=== PATIENT | female | born 1955 | race Hispanic/Latino ===

== ENCOUNTER 2019-02-25 10:13 | Outpatient (CLI) | payer MEDICARE ==
--- NOTE | 2019-02-25 11:24 | RAD ---
Chest 2 views HISTORY: Chest pain. Preop. FINDINGS: Cardiac silhouette and pulmonary vasculature are unremarkable. Mediastinum is midline. No c onfluent airspace consolidation, pneumothorax, or pleural fluid. IMPRESSION: No active cardiopulmonary abnormalities are demonstrated.
[2019-02-25 12:15] LABS: Band 2 % (5-11); Hemoglobin 13.8 g/dL (12.0-16.0); Lymphocytes 22 % (21-51); MDiff Complete? YES; Mean Corpuscular HGB CONC 34.1 g/dL (32.0-36.0); Mean Corpuscular Hemoglobin 31.1 pg (27.0-31.0); Mean Corpuscular Volume 91.4 fL (78.0-98.0); Mean Platelet Volume 8.1 fL (7.4-10.4); Monocytes 7 % (0-10); Neutrophil 69 % (42-75); Platelet Count 209 thou/uL (130-400); RBC Distribution Width 13.2 % (11.5-14.5); RBC Morphology Normal; Red Blood Cell (RBC) Count 4.43 mill/uL (4.20-5.40); White Blood Cell (WBC) Count 6.4 thou/uL (4.8-10.8)
[2019-02-25 12:21] LABS: ALT (SGPT) 19 U/L (8-55); AST (SGOT) 16 U/L (5-34); Albumin 4.3 g/dL (3.4-4.8); Alkaline Phosphatase 71 U/L (40-150); Anion Gap 13 mmol/L (10-20); BUN (Urea Nitrogen) 23 mg/dL (9.8-20.1); Bilirubin, Total 0.5 mg/dL (0.2-1.2); Calc. Creatinine Clearance 0 mL/min (70-130); Calcium 9.8 mg/dL (7.8-10.44); Carbon Dioxide 25 mmol/L (23-31); Chloride 105 mmol/L (98-107); Estimated GFR-MDRD 54; Globulin 3.1 g/dL (2.4-3.5); Glucose 99 mg/dL (80-115); Potassium 3.9 mmol/L (3.5-5.1); Protein, Total 7.4 g/dL (6.0-8.3); Sodium 139 mmol/L (136-145)
[2019-02-25 14:06] LABS: Cardiac Risk 3.2 (Less than 4.5)
== END 2019-02-25 10:14 | disposition home or self-care (01) ==
LOC: LABBT 10:13
PROVIDERS: ATTEND Internal Medicine Cardiovascular Disease
DX: Z01.818 Encounter for other preprocedural examination (principal); R94.39 Abnormal result of other cardiovascular function study
CPT/HCPCS: 71046; 80053; 80061; 85025; 93005; 93010

== ENCOUNTER 2019-02-27 05:51 | Inpatient (IN) | payer MEDICARE ==
[2019-02-27] MEDS ORDERED: Heparin 10,000 UNITS/1 ML VIAL ONE (06:28)
[2019-02-27] MEDS ORDERED: Fentanyl 100 MCG/2 ML VIAL ONE (07:03)
[2019-02-27] MEDS ORDERED: Midazolam HCl 2 mg/2 ml Vial ONE (07:03)
[2019-02-27] MEDS ORDERED: Nitroglycerin 0.4 MG TAB (25 Tab Bottle) SL PRN (07:33)
[2019-02-27] MEDS ORDERED: Sodium Chloride 0.9% 200 ML IV PRN (07:33)
[2019-02-27] MEDS ORDERED: Heparin 25,000 units/D5W 500 ML ONE (07:40)
[2019-02-27] MEDS ORDERED: Fentanyl 100 MCG/2 ML VIAL SLOW IVP PRN (07:41)
[2019-02-27] MEDS ORDERED: Heparin 10,000 UNITS/ 10 ML VIAL SLOW IVP SCH (07:45)
[2019-02-27] MEDS ORDERED: Sodium Chloride 0.9% 1,000 ML IV SCH (07:45)
[2019-02-27] MEDS ORDERED: Communication Order-Pharmacy FS SCH (08:13)
[2019-02-27] MEDS ORDERED: Iopamidol 370 76% 100 ML VIAL ONE (10:04)
[2019-02-27] MEDS ORDERED: Iopamidol 370 76% 50 ML VIAL FS ONE (10:04)
[2019-02-27 10:05] LABS: INR-International Normal Ratio 1.1; Prothrombin Time 14.2 SEC (12.0-14.7)
[2019-02-27 10:06] LABS: PTT 87.4 SEC (22.9-36.1)
[2019-02-27] MEDS: Ubidecarenone 50 MG CAP PO SCH (11:00)
[2019-02-27] MEDS: Losartan 25 MG TAB PO SCH (11:02)
[2019-02-27] MEDS: Metoprolol Tartrate 25 MG TAB PO SCH ×2 (11:02→20:01)
--- NOTE | 2019-02-27 13:10 | CON ---
DATE OF CONSULTATION: HISTORY OF PRESENT ILLNESS: This is a 63-year-old female, who underwent cardiac catheterization today by Dr. Vences. She states at least for the past couple of months, she has noticed dyspnea when she walks out to her mailbox. This maybe associated with chest pressure, perhaps some left shoulder pain or back pain, but it is very difficult to get a coherent history from this pleasant lady. She had an abnormal stress test, which prompted the catheterization. She was placed on aspirin at the time of initial evaluation by Dr. Vences. PAST MEDICAL HISTORY: Includes hypertension and dyslipidemia. She denies any history of diabetes mellitus, but does have a strong family history of heart disease including a brother who during heart surgery in his 30s. PAST SURGICAL HISTORY: Includes colonoscopy and polypectomy. SOCIAL HISTORY: She is a nonsmoker. She is . 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 ALLERGIES: SHE REPORTS ALLERGIES TO PENICILLIN, MORPHINE, AND IODINE. SHE ALSO REPORTS AN ASPIRIN ALLERGY, BUT THIS IS ACTUALLY JUST SENSITIVE STOMACH SYMPTOMS. PHYSICAL EXAMINATION: VITAL SIGNS: She is recorded as 5 feet 3 inches, 197 pounds for a BMI of 35. NECK: No carotid bruits. LUNGS: Clear to auscultation. CARDIAC: Regular rate and rhythm with no murmurs. ABDOMEN: Obese with panniculus hanging over both of her groin areas. She has a sheath in her right groin at this time. She has palpable popliteal pulses bilaterally and she has a palpable left dorsalis pedis pulse. I do not appreciate any pedal pulses in her right foot. She has no peripheral edema, and she does have some superficial veins visible in her leg, but no real varicosities. IMAGING STUDIES: Cardiac catheterization shows multivessel coronary artery disease with a 70% left main prior to 2 large obtuse marginals. Her LAD is occluded, it fills from collaterals and the distal vessel was of questionable quality. Right coronary artery has an acute marginal with a 90% stenosis and a significant stenosis in a mid PDA. ASSESSMENT AND PLAN: The patient would benefit from coronary artery bypass grafting, and I have gone over the procedure, risks, complications, benefits, options, and expectations with the patient and , and all questions have been answered and we will plan on surgical intervention tomorrow. Job ID: [id number]
[2019-02-27 16:18] LABS: Prothrombin Time 13.6 SEC (12.0-14.7)
[2019-02-27 16:19] LABS: PTT 73.7 SEC (22.9-36.1)
[2019-02-27] MEDS: Nitroglycerin 2% Ointment 1 INCH/1 GM Packet TOP SCH ×2 (18:06→22:07)
[2019-02-27] MEDS: Atorvastatin Calcium 40 MG TAB PO SCH (20:01)
[2019-02-28 02:48] LABS: Troponin I Less than 0.010 ng/mL (< 0.028)
[2019-02-28] MEDS: Metoprolol Tartrate 25 MG TAB PO SCH (05:29)
[2019-02-28] MEDS: Nitroglycerin 2% Ointment 1 INCH/1 GM Packet TOP SCH (05:30)
[2019-02-28] MEDS ORDERED: Fentanyl 250 MCG/5 ML VIAL ONE (06:36)
[2019-02-28] MEDS ORDERED: Albumin 5% 500 ML ONE (06:36)
[2019-02-28] MEDS ORDERED: Midazolam HCl 2 mg/2 ml Vial ONE (06:36)
[2019-02-28] MEDS ORDERED: Nitroglycerin 50 MG/250 ML BOT 250 ML ONE (06:38)
[2019-02-28] MEDS ORDERED: Norepinephrine 4 MG/4 ML VIAL ONE (06:38)
[2019-02-28] MEDS ORDERED: Heparin 10,000 UNITS/1 ML VIAL 30,000 UNITS in Sodium Chloride 0.9% 1,000 ML FS SCH (06:45)
[2019-02-28] MEDS ORDERED: Levofloxacin 500 mg/D5W 100 ml Premix Bag ONE (08:14)
[2019-02-28] MEDS ORDERED: Heparin 30,000 units/30 ml VIAL ONE (09:24)
[2019-02-28] MEDS ORDERED: Sodium Bicarb 50 MEQ/50 ML VIAL ONE (09:24)
[2019-02-28] MEDS ORDERED: Calcium Chloride 1 GM/10 ML Abboject SYRINGE ONE (09:24)
[2019-02-28] MEDS ORDERED: Protamine Sulfate 250 MG/25 ML VIAL ONE (09:24)
[2019-02-28] MEDS ORDERED: Mannitol 12.5 GM/50 ML ONE (09:24)
[2019-02-28] MEDS ORDERED: Vecuronium 10 MG VIAL ONE (09:24)
[2019-02-28] MEDS ORDERED: Aminocaproic Acid 5 GM/20 ML VIAL ONE (09:24)
[2019-02-28] MEDS ORDERED: Thrombin 5000 UNITS/5 ML VIAL ONE (09:24)
[2019-02-28] MEDS ORDERED: Succinylcholine Chloride 20 MG/ML 10 ml SYRINGE FS ONE (09:24)
[2019-02-28] MEDS ORDERED: Lidocaine 2% PF 100 mg/5 ml Syringe ONE (09:24)
[2019-02-28] MEDS ORDERED: Cardioplegic Soln 1,000 ML BAG ONE (09:24)
[2019-02-28] MEDS ORDERED: Rocuronium Bromide 10 MG/ML (10ML VIAL) ONE (09:24)
[2019-02-28] MEDS ORDERED: Heparin 5,000 UNITS/ML VIAL ONE (09:24)
[2019-02-28] MEDS ORDERED: Papaverine 60 MG/2 ML VIAL ONE (09:24)
[2019-02-28] MEDS ORDERED: Magnesium 5 GM/10 ML VIAL ONE (09:24)
[2019-02-28] MEDS ORDERED: Potassium Chloride 60 MEQ/30 ML VIAL ONE (09:24)
[2019-02-28] MEDS ORDERED: PROPOFOL 200 MG/20 ML VIAL ONE (09:24)
[2019-02-28] MEDS: Ubidecarenone 50 MG CAP PO SCH (11:38)
[2019-02-28] MEDS: Losartan 25 MG TAB PO SCH (11:38)
[2019-02-28] MEDS ORDERED: hydrALAZINE 20 MG/ML VIAL SLOW IVP PRN (11:58)
[2019-02-28] MEDS ORDERED: DOPamine 400 MG/D5W 250 ML 250 ML IVPB PRN (11:58)
[2019-02-28] MEDS ORDERED: Post-Op Insulin Drip Protocol IVPB ONE (11:58)
[2019-02-28] MEDS ORDERED: Fentanyl 100 MCG/2 ML VIAL SLOW IVP PRN ×2 (11:58)
[2019-02-28] MEDS ORDERED: Bisacodyl 10 MG SUPP PR PRN (11:58)
[2019-02-28] MEDS ORDERED: Guaifenesin DM 100-10/5 ML UDCUP PO PRN (11:58)
[2019-02-28] MEDS ORDERED: Morphine 2 MG/ML SYRINGE SLOW IVP PRN (11:58)
[2019-02-28] MEDS ORDERED: traMADol HCl 50 MG TAB PO PRN (11:58)
[2019-02-28] MEDS ORDERED: Nitroglycerin 50 MG/250 ML BOT 250 ML IVPB PRN (11:58)
[2019-02-28] MEDS ORDERED: Bisacodyl 5 MG TAB PO PRN (11:58)
[2019-02-28] MEDS ORDERED: Promethazine HCl 25 MG/ML VIAL IM PRN (11:58)
[2019-02-28] MEDS ORDERED: Hetastarch 6% 500 ML 500 ML IVPB PRN (11:58)
[2019-02-28] MEDS ORDERED: Mag-Al 1200 mg/1200 mg/30 ML UDCUP PO PRN (11:58)
[2019-02-28] MEDS ORDERED: HUMULIN R 100 UNITS in Sodium Chloride 0.9% 100 ML IVPB SCH (12:25)
[2019-02-28] MEDS ORDERED: Dextrose 5% in Water 1,000 ML IV PRN (12:25)
[2019-02-28] MEDS ORDERED: Dextrose 50% Abboject 50 ML SYRINGE SLOW IVP PRN (12:25)
[2019-02-28] MEDS ORDERED: Insulin Regular 300 UNITS/3 ML VIAL SC PRN (12:25)
[2019-02-28] MEDS: Ketorolac Tromethamine 30 MG/ML VIAL IVP SCH ×3 (12:51→23:13)
[2019-02-28] MEDS: Ondansetron PF 4 MG/2 ML Vial IVP PRN (12:51)
[2019-02-28 12:52] LABS: Hemoglobin 10.4 g/dL (12.0-16.0); Mean Corpuscular HGB CONC 33.5 g/dL (32.0-36.0); Mean Corpuscular Hemoglobin 31.1 pg (27.0-31.0); Mean Corpuscular Volume 92.8 fL (78.0-98.0); Mean Platelet Volume 7.9 fL (7.4-10.4); Platelet Count 160 thou/uL (130-400); RBC Distribution Width 13.6 % (11.5-14.5); Red Blood Cell (RBC) Count 3.36 mill/uL (4.20-5.40); White Blood Cell (WBC) Count 23.7 thou/uL (4.8-10.8)
--- NOTE | 2019-02-28 12:54 | RAD ---
XR Chest 1 View Portable History: Open heart surgery Comparison: Radiograph 02/25/2019 Findings: Patient is intubated endotracheal tube tip at the level of the clavicles. Central venous ca theter tip sits at the right atrium. Mediastinal drain is in place. No pneumothorax. Mild atelectasis. Impression: Satisfactory postoperative appearance.
[2019-02-28] MEDS: Sodium Chloride 0.9% 1,000 ML IV SCH (12:55)
[2019-02-28 12:57] LABS: INR-International Normal Ratio 1.4; PTT 27.3 SEC (22.9-36.1); Prothrombin Time 16.7 SEC (12.0-14.7)
[2019-02-28] MEDS: Clindamycin/D5W 900 MG in Premix Bag 1 BAG IVPB SCH ×3 (13:01→23:13)
[2019-02-28 13:05] LABS: Band 17 % (5-11); Eosinophils 1 % (0-10); Lymphocytes 19 % (21-51); MDiff Complete? YES; Monocytes 5 % (0-10); Neutrophil 58 % (42-75); Platelet Morphology Comment Appears Adequate; Polychromasia SLIGHT = 2-3 cells (100X) (0-2/hpf)
[2019-02-28 13:06] LABS: Actual Bicarbonate (HCO3a) 22.8 mEq/L (22-28); Base Excess (BEa) -3.2 mEq/L (-2.0 to +3.0); CO2 Tension 44.6 mmHg (35.0-45.0); Calcium, Ionized 1.03 mmol/L (1.12-1.30); Hemoglobin (Hb) 11.6 g/dL (12.0-16.0); O2 Tension (PaO2) 116.1 mmHg (> 80.0); Potassium - ABG Lab 3.54 mmol/L (3.70-5.30); pH, Arterial 7.33 (7.35-7.45)
[2019-02-28 13:07] LABS: Puncture Site ALINE
[2019-02-28 13:20] LABS: Anion Gap 12 mmol/L (10-20); BUN (Urea Nitrogen) 12 mg/dL (9.8-20.1); Calc. Creatinine Clearance 106 mL/min (70-130); Calcium 7.6 mg/dL (7.8-10.44); Carbon Dioxide 22 mmol/L (23-31); Chloride 111 mmol/L (98-107); Estimated GFR-MDRD 78; Glucose 164 mg/dL (80-115); Potassium 3.7 mmol/L (3.5-5.1); Sodium 141 mmol/L (136-145)
[2019-02-28 18:25] LABS: Hemoglobin 10.4 g/dL (12.0-16.0)
[2019-02-28 18:38] LABS: Potassium 3.9 mmol/L (3.5-5.1)
[2019-02-28] MEDS: Potassium Chloride 20 MEQ/100 ML PREMIX BAG IVPB PRN (19:10)
[2019-02-28 19:14] LABS: Actual Bicarbonate (HCO3a) 17.9 mEq/L (22-28); Base Excess (BEa) -6.9 mEq/L (-2.0 to +3.0); CO2 Tension 33.4 mmHg (35.0-45.0); Calcium, Ionized 1.04 mmol/L (1.12-1.30); Carboxyhemoglobin (COHb) 0.7 gm% (0.0-3.0); O2 Tension (PaO2) 94.9 mmHg (> 80.0); Potassium - ABG Lab 3.92 mmol/L (3.70-5.30); Puncture Site ALINE; pH, Arterial 7.35 (7.35-7.45)
[2019-02-28] MEDS: Famotidine/PF 20 mg/2ml Vial SLOW IVP SCH (21:24)
[2019-02-28] MEDS: Atorvastatin Calcium 40 MG TAB PO SCH (21:24)
[2019-03-01] MEDS: Sodium Chloride 0.9% 1,000 ML IV SCH (02:53)
[2019-03-01 04:34] LABS: #Basophils 0.1 thou/uL (0.0-0.2); #Lymphocytes 1.2 thou/uL (1.20-3.40); #Monocytes 0.8 thou/uL (0.11-0.59); #Neutrophils 9.4 thou/uL (1.40-6.50); %Basophils 1.1 % (0.0-1.0); %Eosinophils 0.1 % (0.0-10.0); %Lymphocytes 10.7 % (21.0-51.0); %Monocytes 7.2 % (0.0-10.0); %Neutrophils 80.9 % (42.0-75.0); Mean Corpuscular HGB CONC 33.1 g/dL (32.0-36.0); Mean Corpuscular Hemoglobin 30.8 pg (27.0-31.0); Mean Corpuscular Volume 93.1 fL (78.0-98.0); Mean Platelet Volume 7.7 fL (7.4-10.4); Platelet Count 133 thou/uL (130-400); RBC Distribution Width 13.7 % (11.5-14.5); Red Blood Cell (RBC) Count 3.25 mill/uL (4.20-5.40); White Blood Cell (WBC) Count 11.6 thou/uL (4.8-10.8)
[2019-03-01 04:36] LABS: Hemoglobin A1c 5.9 % (4.0-6.0)
[2019-03-01 04:49] LABS: Anion Gap 11 mmol/L (10-20); BUN (Urea Nitrogen) 14 mg/dL (9.8-20.1); Calc. Creatinine Clearance 105 mL/min (70-130); Calcium 7.6 mg/dL (7.8-10.44); Carbon Dioxide 21 mmol/L (23-31); Chloride 112 mmol/L (98-107); Estimated GFR-MDRD 76; Glucose 117 mg/dL (80-115); Sodium 140 mmol/L (136-145)
[2019-03-01] MEDS: Clindamycin/D5W 900 MG in Premix Bag 1 BAG IVPB SCH (05:15)
[2019-03-01] MEDS: Ketorolac Tromethamine 30 MG/ML VIAL IVP SCH ×3 (05:15→17:43)
[2019-03-01] MEDS: Potassium Chloride 20 MEQ/100 ML PREMIX BAG IVPB PRN (05:58)
--- NOTE | 2019-03-01 07:43 | RAD ---
Frontal radiograph chest: 03/01/2019 COMPARISON: 02/28/2019 HISTORY: Evaluate chest following open heart surgery FINDINGS: Midline sternotomy wires are noted. There is atherosclerotic calcification of the aortic ar ch. Right vascular catheter in place, distal tip overlying the right atrium. Right lung appears clear. Hazy increased density in the left base suggest mild atelectatic change. Drainage catheter ove rlies the left base. Endotracheal tube has been removed since the prior exam. IMPRESSION: No interval change aside from interval extubation
[2019-03-01] MEDS: Famotidine/PF 20 mg/2ml Vial SLOW IVP SCH (07:55)
[2019-03-01] MEDS: Ondansetron PF 4 MG/2 ML Vial IVP PRN (08:39)
--- NOTE | 2019-03-01 08:50 | OP ---
DATE OF PROCEDURE: 02/28/2019 PREOPERATIVE DIAGNOSIS: Coronary artery disease. POSTOPERATIVE DIAGNOSIS: Coronary artery disease. PROCEDURE PERFORMED: Coronary artery bypass graft x5; left internal mammary artery good flow to a 1.5 mm left anterior descending artery; saphenous vein good quality as a sequential graft to the acute marginal and posterior descending artery, both about 1.5 mm; saphenous vein graft to 2 mm obtuse marginal 1; saphenous vein graft to a 1.5 mm obtuse marginal 2. [employer] REPAIRER: Román. TRANSFUSION: None. DESCRIPTION OF PROCEDURE: After adequate anesthesia had been obtained, the patient was prepped and draped. Dr. France did an endovascular vein harvest of the left greater saphenous vein while I performed a median sternotomy. After opening the sternum, the patient's left internal mammary artery was dissected. Exposure was somewhat limited due to her large size and prominent breast on the contralateral chest. After heparinization, the mammary was divided distally and passed posterior to the thymus gland through a slit in the pericardium. Aorta and right atrium were cannulated and cardiopulmonary bypass begun. Aorta was cross-clamped and after a liter of cold blood cardioplegia, the distal anastomosis was all completed. The cross-clamp was removed and the partial occluding clamp placed. The right coronary graft had been a sequential with [id number] to the acute marginal and end-to-side to the PDA and proximal anastomosis was performed on the aortic root and marked with a ring. The OM1 vein graft was anastomosed to the aorta and marked with a ring and the partial occluding clamp was then removed and the OM2 vein graft was placed to the side of the OM1 vein graft about 2 cm from the aortic root. Proximal and distal anastomoses were then hemostatic. The patient was weaned from cardiopulmonary bypass and a left pleural drain was placed as well as a mediastinal drain. The patient really had no space in her chest and the sternum was then reapproximated with #7 interrupted wire, taking care to ensure that the grafts were not compressed by the chest drains. After closing the sternum using vancomycin paste on the sternal edges with platelet rich blood, the patient's blood pressure dropped, and due to concern about the grafts being compressed due to lack of space in her chest, the wires were removed. Left ventricular function was normal both with chest closed and open. After inspection, it was not felt that the grafts were being compromised and the chest was then reclosed. Subcutaneous tissue and skin were closed in layers and the patient is to be taken to the ICU in guarded condition. Job ID: [id number]
[2019-03-01] MEDS ORDERED: Aspirin 325 MG TAB PO SCH (09:00)
[2019-03-01] MEDS: Ubidecarenone 50 MG CAP PO SCH (09:59)
[2019-03-01] MEDS: Acetaminophen 325 MG TAB PO PRN ×2 (11:07→21:01)
[2019-03-01] MEDS ORDERED: Aspirin 81 mg Enteric Coated Tablet PO SCH (12:00)
[2019-03-01] MEDS: Atorvastatin Calcium 40 MG TAB PO SCH (21:01)
[2019-03-01] MEDS: Famotidine 20 MG TAB PO SCH (21:01)
--- NOTE | 2019-03-01 21:25 | EKG ---
Test Reason : S/P CABG Blood Pressure : / mmHG Vent. Rate : 079 BPM Atrial Rate : 079 BPM P-R Int : 150 ms QRS Dur : 140 ms QT Int : 472 ms P-R-T Axes : 040 018 014 degrees QTc Int : 541 ms Sinus rhythm with occasional Premature ventricular complexes Right bundle branch block Cannot rule out Inferior infarct , age undetermined Abnormal ECG When compared with ECG of 25-FEB-2019 10:54, (Unconfirmed) Premature ventricular complexes are now Present Right bundle branch block is now Present Minimal criteria for Inferior infarct are now Present Confirmed by Wendy HICKMAN ([id number]) on 03/01/2019 9:24:51 PM Referred By: [facility] Confirmed By:Wendy HICKMAN
[2019-03-02] MEDS: Ketorolac Tromethamine 30 MG/ML VIAL IVP SCH ×5 (00:02→23:03)
[2019-03-02 04:47] LABS: Anion Gap 10 mmol/L (10-20); BUN (Urea Nitrogen) 18 mg/dL (9.8-20.1); Calc. Creatinine Clearance 91 mL/min (70-130); Carbon Dioxide 23 mmol/L (23-31); Chloride 110 mmol/L (98-107); Estimated GFR-MDRD 65; Glucose 109 mg/dL (80-115); Potassium 3.6 mmol/L (3.5-5.1); Sodium 139 mmol/L (136-145)
[2019-03-02 05:02] LABS: Band 5 % (5-11); Hemoglobin 9.2 g/dL (12.0-16.0); Lymphocytes 10 % (21-51); MDiff Complete? YES; Mean Corpuscular HGB CONC 33.7 g/dL (32.0-36.0); Mean Corpuscular Hemoglobin 31.4 pg (27.0-31.0); Monocytes 9 % (0-10); Neutrophil 76 % (42-75); Platelet Count 126 thou/uL (130-400); Platelet Morphology Comment Appears Decreased; RBC Distribution Width 13.7 % (11.5-14.5); RBC Morphology Normal; Red Blood Cell (RBC) Count 2.94 mill/uL (4.20-5.40); White Blood Cell (WBC) Count 10.5 thou/uL (4.8-10.8)
[2019-03-02 06:15] VITALS: BMI 36.3
[2019-03-02] MEDS: Potassium Chloride 20 MEQ/100 ML PREMIX BAG IVPB PRN (06:30)
[2019-03-02] MEDS ORDERED: Potassium Chloride 10 MEQ TAB PO SCH (07:15)
[2019-03-02] MEDS ORDERED: Furosemide 40 MG/4 ML VIAL SLOW IVP SCH (07:15)
[2019-03-02] MEDS ORDERED: Furosemide 40 MG/4 ML VIAL ONE (07:19)
[2019-03-02] MEDS: Ondansetron PF 4 MG/2 ML Vial IVP PRN (07:20)
--- NOTE | 2019-03-02 08:20 | PDOC.CTH ---
Cardiology Progress Note - Subjective No complaints. Still with CP in place. - Objective Vital Signs Temp Pulse Ox 03/02/19 07:36 98.6 F 96 03/02/19 07:00 98.6 F 03/02/19 04:00 98.7 F 03/02/19 00:00 98.9 F Admit Weight 198 lb 3.129 oz Weight 204 lb 12.951 oz 03/01/19 03/02/19 03/03/19 06:59 06:59 06:59 Intake Total 1843.9 1658 360 Output Total 1605 1275 90 Balance 238.9 383 270 - Physical Examination General/Neuro: alert & oriented x3, NAD Neck: carotid US brisk, no JVD present Lungs: unlabored respirations Heart: PMI normal, RRR Abdomen: NT/ND, soft Extremities: + femoral B - Labs Result Diagrams: 03/02/19 04:10 03/02/19 04:10 Troponin/CKMB Troponin I Less than 0.010 ng/mL (< 0.028) 02/28/19 02:00 - Assessment/Plan Severe CAD s/p CABG times 5 On ASA Add BB, statin Slowly improving CT per CV surgery Hb stable
[2019-03-02] MEDS: Ubidecarenone 50 MG CAP PO SCH (08:39)
[2019-03-02] MEDS: Famotidine 20 MG TAB PO SCH ×2 (08:39→20:06)
[2019-03-02] MEDS: Aspirin 81 mg Enteric Coated Tablet PO SCH (08:41)
--- NOTE | 2019-03-02 09:29 | RAD ---
PORTABLE CHEST 1 VIEW: DATE: 03/02/2019. TIME: 4:40 a.m. HISTORY: Postop open heart surgery. FINDINGS: Comparison is made with the exam of previous day. Changes of median sternotomy are again seen. Left-sided chest tube is unchanged in position. Mildly increased density in the left lung base is likely due to atelectatic changes. The heart size is sta ble. No pneumothoraces are seen. Right lung is clear. POS: RAD[facility]
[2019-03-02] MEDS: Atorvastatin Calcium 40 MG TAB PO SCH (20:06)
[2019-03-03 04:43] LABS: Anion Gap 10 mmol/L (10-20); BUN (Urea Nitrogen) 24 mg/dL (9.8-20.1); Calc. Creatinine Clearance 83 mL/min (70-130); Calcium 8.2 mg/dL (7.8-10.44); Carbon Dioxide 23 mmol/L (23-31); Chloride 110 mmol/L (98-107); Estimated GFR-MDRD 56; Glucose 108 mg/dL (80-115); Potassium 3.7 mmol/L (3.5-5.1); Sodium 139 mmol/L (136-145)
[2019-03-03] MEDS: Ketorolac Tromethamine 30 MG/ML VIAL IVP SCH ×3 (05:03→17:14)
[2019-03-03] MEDS: Potassium Chloride 20 MEQ/100 ML PREMIX BAG IVPB PRN (05:04)
[2019-03-03] MEDS: Ubidecarenone 50 MG CAP PO SCH (07:16)
[2019-03-03] MEDS: Aspirin 81 mg Enteric Coated Tablet PO SCH (07:16)
[2019-03-03] MEDS: Famotidine 20 MG TAB PO SCH ×2 (08:00→21:17)
--- NOTE | 2019-03-03 08:57 | PDOC.CTH ---
Cardiology Progress Note - Objective Vital Signs Temp Pulse Ox 03/03/19 07:04 95 03/03/19 07:00 98.1 F 03/03/19 03:00 98.7 F 03/02/19 23:00 98.3 F Admit Weight 198 lb 3.129 oz Weight 199 lb 4.766 oz 03/02/19 03/03/19 03/04/19 06:59 06:59 06:59 Intake Total 1658 2240 120 Output Total 1275 2605 150 Balance 383 -365 -30 - Labs Result Diagrams: 03/02/19 04:10 03/03/19 03:30 Troponin/CKMB Troponin I Less than 0.010 ng/mL (< 0.028) 02/28/19 02:00 - Assessment/Plan Severe CAD s/p CABG times 5 REC 03/02 On ASA Add BB, statin Slowly improving CT per CV surgery Hb stable
[2019-03-03] MEDS ORDERED: Bisacodyl 5 MG TAB PO PRN (09:38)
[2019-03-03] MEDS ORDERED: Bisacodyl 10 MG SUPP PR PRN (09:38)
[2019-03-03] MEDS ORDERED: Mag-Al 1200 mg/1200 mg/30 ML UDCUP PO PRN (09:38)
[2019-03-03] MEDS ORDERED: Guaifenesin DM 100-10/5 ML UDCUP PO PRN (09:38)
[2019-03-03] MEDS ORDERED: Artificial Tears 18 DROP/0.9 ML EA EYE PRN (09:38)
[2019-03-03] MEDS ORDERED: Zolpidem Tartrate 5 MG TAB PO PRN (09:38)
[2019-03-03] MEDS ORDERED: Mineral Oil ENEMA PR PRN (09:38)
[2019-03-03] MEDS ORDERED: diphenhydrAMINE 25 MG CAP PO PRN (09:38)
[2019-03-03] MEDS ORDERED: Nitroglycerin 0.4 MG TAB (25 Tab Bottle) SL PRN (09:38)
--- NOTE | 2019-03-03 10:20 | PDOC.CTH ---
Cardiology Progress Note - Subjective Patient without complaints. Feeling much better today. No pain. back to almost baseline weight. Denies CP, SOB. - Objective Vital Signs Temp Pulse Resp BP Pulse Ox 03/03/19 09:30 98.3 F 89 18 106/55 L 97 03/03/19 07:04 95 03/03/19 07:00 98.1 F 03/03/19 03:00 98.7 F 03/02/19 23:00 98.3 F Admit Weight 198 lb 3.129 oz Weight 199 lb 4.766 oz 03/02/19 03/03/19 03/04/19 06:59 06:59 06:59 Intake Total 1658 2240 120 Output Total 1275 2605 150 Balance 383 -365 -30 - Physical Examination General/Neuro: alert & oriented x3 Neck: no JVD present Lungs: CTA Heart: RRR Abdomen: NT/ND Extremities: other: (no edema) - Telemetry Telemetry Rhythm: SR - Labs Result Diagrams: 03/02/19 04:10 03/03/19 03:30 Troponin/CKMB Troponin I Less than 0.010 ng/mL (< 0.028) 02/28/19 02:00 - Assessment/Plan 1. CAD s/p CABG x 5 2. HTN 3. HLD Increase PT with cardiac rehab today and needs to be up to chair PRN. Stable at this time. Add bblocker. On ASA, statin.
[2019-03-03] MEDS: Ondansetron PF 4 MG/2 ML Vial IVP PRN (12:06)
[2019-03-03] MEDS: Atorvastatin Calcium 40 MG TAB PO SCH (21:17)
[2019-03-04] MEDS: Ketorolac Tromethamine 30 MG/ML VIAL IVP SCH ×4 (00:23→17:50)
[2019-03-04] MEDS: Ubidecarenone 50 MG CAP PO SCH (09:22)
[2019-03-04] MEDS: Aspirin 81 mg Enteric Coated Tablet PO SCH (09:22)
[2019-03-04] MEDS: Famotidine 20 MG TAB PO SCH ×2 (09:22→20:41)
[2019-03-04 15:08] LABS: Actual Bicarbonate (HCO3a) 17.5 mEq/L (22-28); Analyzer IN Cardio OR; Base Excess (BEa) -6.6 mEq/L (-2.0 to +3.0); CO2 Tension 30.8 mmHg (35.0-45.0); Calcium, Ionized 1.07 mmol/L (1.12-1.30); Carboxyhemoglobin (COHb) 0.8 gm% (0.0-3.0); Hemoglobin (Hb) 11.9 g/dL (12.0-16.0); O2 Tension (PaO2) 419.9 mmHg (> 80.0); Potassium - ABG Lab 3.69 mmol/L (3.70-5.30); pH, Arterial 7.37 (7.35-7.45)
[2019-03-04 15:08] LABS: Actual Bicarbonate (HCO3a) 17.8 mEq/L (22-28); Analyzer IN Cardio OR; Base Excess (BEa) -5.9 mEq/L (-2.0 to +3.0); CO2 Tension 29.3 mmHg (35.0-45.0); Calcium, Ionized 1.03 mmol/L (1.12-1.30); Hemoglobin (Hb) 11.1 g/dL (12.0-16.0); O2 Tension (PaO2) 485.9 mmHg (> 80.0)
[2019-03-04 15:09] LABS: Actual Bicarbonate (HCO3a) 20.3 mEq/L (22-28); Analyzer IN Cardio OR; Base Excess (BEa) -2.5 mEq/L (-2.0 to +3.0); CO2 Tension 27.9 mmHg (35.0-45.0); Calcium, Ionized 0.95 mmol/L (1.12-1.30); Carboxyhemoglobin (COHb) 0.5 gm% (0.0-3.0); Hemoglobin (Hb) 8.6 g/dL (12.0-16.0); O2 Tension (PaO2) 471.3 mmHg (> 80.0); Potassium - ABG Lab 5.67 mmol/L (3.70-5.30); pH, Arterial 7.48 (7.35-7.45)
[2019-03-04 15:09] LABS: Actual Bicarbonate (HCO3v) 29 mEq/L (22-28); Analyzer IN Cardio OR; Base Excess 4.8 mEq/L (-2.0 to +3.0); Calcium, Ionized 0.87 mmol/L (1.16-1.32); Chloride (ABG LAB) 108 mmol/L (98-106); Hemoglobin (Hb) 7.5 g/dL (11.7-16.1); Potassium - ABG Lab 4.11 mmol/L (3.70-5.30); Sodium 141.6 mmol/L (133-146); pH (venous) 7.47 (7.32-7.43)
[2019-03-04 15:09] LABS: Actual Bicarbonate (HCO3a) 21.7 mEq/L (22-28); Analyzer IN Cardio OR; Base Excess (BEa) -2.7 mEq/L (-2.0 to +3.0); CO2 Tension 35.3 mmHg (35.0-45.0); Calcium, Ionized 0.97 mmol/L (1.12-1.30); Carboxyhemoglobin (COHb) 0.9 gm% (0.0-3.0); Hemoglobin (Hb) 7.6 g/dL (12.0-16.0); O2 Tension (PaO2) 418.3 mmHg (> 80.0); Potassium - ABG Lab 4.32 mmol/L (3.70-5.30); pH, Arterial 7.41 (7.35-7.45)
[2019-03-04 15:10] LABS: Actual Bicarbonate (HCO3a) 22.1 mEq/L (22-28); Analyzer IN Cardio OR; Base Excess (BEa) -1.2 mEq/L (-2.0 to +3.0); CO2 Tension 31.2 mmHg (35.0-45.0); Calcium, Ionized 1.04 mmol/L (1.12-1.30); Carboxyhemoglobin (COHb) 0.3 gm% (0.0-3.0); Hemoglobin (Hb) 7.4 g/dL (12.0-16.0); O2 Tension (PaO2) 424.1 mmHg (> 80.0); Potassium - ABG Lab 3.63 mmol/L (3.70-5.30); pH, Arterial 7.47 (7.35-7.45)
[2019-03-04 15:10] LABS: Actual Bicarbonate (HCO3a) 21.2 mEq/L (22-28); Analyzer IN Cardio OR; Calcium, Ionized 1.04 mmol/L (1.12-1.30); Carboxyhemoglobin (COHb) 0.3 gm% (0.0-3.0); Hemoglobin (Hb) 10.7 g/dL (12.0-16.0); O2 Tension (PaO2) 284.6 mmHg (> 80.0); Potassium - ABG Lab 3.67 mmol/L (3.70-5.30); pH, Arterial 7.35 (7.35-7.45)
[2019-03-04 15:11] LABS: Puncture Site ALINE
[2019-03-04 15:12] LABS: Puncture Site ALINE
[2019-03-04 15:12] LABS: Puncture Site ALINE
[2019-03-04 15:13] LABS: Puncture Site ALINE
[2019-03-04 15:13] LABS: Puncture Site ALINE
[2019-03-04 15:14] LABS: Puncture Site ALINE
[2019-03-04] MEDS: Atorvastatin Calcium 40 MG TAB PO SCH (20:41)
[2019-03-05] MEDS: Ketorolac Tromethamine 30 MG/ML VIAL IVP SCH ×3 (00:01→11:44)
[2019-03-05] MEDS ORDERED: traMADol HCl 50 MG TAB PO PRN (02:02)
[2019-03-05] MEDS: Ondansetron PF 4 MG/2 ML Vial IVP PRN (08:28)
[2019-03-05] MEDS: Famotidine 20 MG TAB PO SCH (10:00)
[2019-03-05] MEDS: Ubidecarenone 50 MG CAP PO SCH (10:00)
[2019-03-05] MEDS: Aspirin 81 mg Enteric Coated Tablet PO SCH (10:00)
[2019-03-05 14:05] VITALS: BP 145/63
[2019-03-05 15:11] VITALS: TEMP 97.9
== END 2019-03-05 16:30 | disposition home or self-care (01) | DRG 234 ==
LOC: CCL 05:51 → CCU 07:33 → 2NO 03-03 09:30
PROVIDERS: ADMIT Internal Medicine Cardiovascular Disease; ATTEND Internal Medicine Cardiovascular Disease
PROC: 4A023N7 Measurement of Cardiac Sampling and Pressure, Left Heart, Percutaneous Approach (ICD-10-PCS; 2019-02-27)
PROC: B2011ZZ Plain Radiography of Multiple Coronary Arteries using Low Osmolar Contrast (ICD-10-PCS; 2019-02-27)
PROC: B2051ZZ Plain Radiography of Left Heart using Low Osmolar Contrast (ICD-10-PCS; 2019-02-27)
PROC: 02100Z9 Bypass Coronary Artery, One Artery from Left Internal Mammary, Open Approach (ICD-10-PCS; principal; 2019-02-28)
PROC: 021309W Bypass Coronary Artery, Four or More Arteries from Aorta with Autologous Venous Tissue, Open Approach (ICD-10-PCS; 2019-02-28)
PROC: 06BQ4ZZ Excision of Left Saphenous Vein, Percutaneous Endoscopic Approach (ICD-10-PCS; 2019-02-28)
PROC: 5A1221Z Performance of Cardiac Output, Continuous (ICD-10-PCS; 2019-02-28)
DX: I25.10 Atherosclerotic heart disease of native coronary artery without angina pectoris (principal); I10 Essential (primary) hypertension; E78.5 Hyperlipidemia, unspecified; Z90.89 Acquired absence of other organs; Z88.0 Allergy status to penicillin; Z88.8 Allergy status to other drugs, medicaments and biological substances; Z91.041 Radiographic dye allergy status
CPT/HCPCS: 36415; 36416; 36430; 71045; 71046; 80048; 80053; 80061; 82805; 82947; 83036; 84484; 85025; 85347; 85610; 85730; 86850; 86900; 86901; 93005; 93010; 93458; 93798; 94002; 94150; 94640; 99152; 99153; C1769; J1265; J1644; J1815; J1885; J1940; J1956; J2001; J2150; J2250; J2405; J2440; J2704; J2720; J3010; J3370; J3475; J3480; J3490; J7050; J7620; P9045; Q9967; S0017; S0028